=== PATIENT | male | born 1985 | race Caucasian/White ===

== ENCOUNTER 2021-05-10 19:43 | Emergency (ER) | payer OTHER, MEDICAID, SELFPAY ==
[2021-05-10 19:53] VITALS: BP 164/95; PULSE 103; RESP 20; TEMP 37.1; O2SAT 96; BMI 30.9
== END 2021-05-10 20:45 | disposition left against medical advice (07) ==
PROVIDERS: Emergency Provider Emergency Medicine
DX: F41.9 Anxiety disorder, unspecified (principal)
CPT/HCPCS: 99281